=== PATIENT | female | born 1960 | race Caucasian/White ===

== ENCOUNTER 2018-03-30 12:28 | Outpatient (CLI) | payer OTHER, MEDICARE ==
--- NOTE | 2018-04-02 14:18 | CONSULTATION REPORT ---
REFERRING PHYSICIAN: Dr. Dania Walker CONSULTING PHYSICIAN: Antonio Calderon MD HISTORY OF PRESENT ILLNESS: Adraina Chowdary is a new patient. She has a history of rheumatoid arthritis involving hands and feet diagnosed on the [facility]. From that point of view, she is doing well. She is not having any joint pain or stiffness in the hands and wrists and she has had no deformities. She saw a track fitter in [place] who felt she did not have rheumatoid arthritis, so she has switched her care to pr. The main problem is pain in the back and the legs. She has had 3 prior lumbar surgeries and she is having a 4th surgery next week at [facility] with Dr. Sauceda. She is also a chronic pain patient and is having a hard time finding someone in pain management but hopefully, will be working with Dr. Arturo Wynne at [facility]. Otherwise, she has no joint swelling. She does have morning stiffness and she hurts all over. It hurts more in the bones and she points to the arms and thighs and lower legs. She recently had nerve conduction studies dated March 07, 2018, which showed chronic neuropathic changes consistent with old chronic L5 radiculopathies bilaterally and a right S1 radiculopathy. On January 31, she had an MRI of the lumbar spine showing postsurgical and spondylolytic change of the lumbar spine with moderate to severe bilateral neuroforaminal narrowing and mild relative central canal stenosis and progressed from a study dated July 13, 2012. She has a significant amount of lab data. Her last CRP was 1.93. She has had CRPs as high as 14 from a different lab, which by that reference lab was felt to be positive. Her last sedimentation rate was January 02 and it was 8. PAST MEDICAL HISTORY: 1. Mitral valve regurgitation. 2. Pneumonia. 3. Hypertension. 4. Chronic headaches. 5. Meralgia paresthetica. 6. Arachnoiditis. 7. Fibromyalgia. 8. Sleep apnea. 9. She is also HLA-B27 positive. PAST SURGICAL HISTORY: 1. Hysterectomy. 2. Three spinal surgeries. 3. Cervical spine surgery in 2008. 4. Arm surgery in 2003. 5. Cholecystectomy. PREVIOUS TREATMENTS: 1. Aspirin. 2. Motrin. 3. Naprosyn. 4. Voltaren. 5. Methotrexate. PRESENT MEDICATIONS: 1. Celebrex 100 mg twice a day. 2. Folic acid 1 mg daily. 3. Methotrexate 0.6 mL intramuscularly every week. Given in a 50 mg 2 mL vial. 4. Ropinirole 0.5 mg. 5. Metoprolol 50 mg 1 daily. 6. Duloxetine 60 mg 1 daily. 7. Omeprazole. 8. Zolpidem. 9. Estradiol. 10. Potassium chloride. 11. Lasix 40 mg daily. ALLERGIES: Patient has no known drug allergies. SOCIAL HISTORY: The patient is disabled. She is . She quit smoking 10 years ago. She does not drink. REVIEW OF SYSTEMS: Positive for a 10-pound weight gain, fatigue, and weakness, dry eyes, dry mouth , chest pain, irregular heartbeat, high blood pressure, heart murmurs, shortness of breath, difficulty breathing at night, swelling of the legs, wheezing, sun sensitivity, color changes in the hands and feet in the cold, headaches, dizziness, muscle spasms, hands sensitivity, difficulty sleeping, and a history of abnormal CT of the chest dated June 2017, requiring a follow up for lung nodules. Otherwise, the patient has had no nausea, vomiting, diarrhea, dark stools, or blood stools. No urinary symptoms. No swollen or tender lymph nodes. No history of anemia or blood transfusions. PHYSICAL EXAMINATION: VITAL SIGNS: Height: 5 feet 10 inches. Weight: 270 pounds. T: 97.3, R: 20, heart rate 80, BP: 150/84. HEENT: Sclerae are anicteric. Conjunctivae are pink. No stomatitis or glossitis. LUNGS: Clear bilaterally with no crackles or wheezing. HEART: Regular rate and rhythm. Normal S1 and S2. ABDOMEN: Soft and nontender. No hepatic or splenic enlargement. VASCULAR: She has trace vascular edema of the lower extremities. SKIN: Skin exam shows a nonspecific dermatitis of the upper extremities. She has no rheumatoid nodules of the upper or lower extremities. JOINTS: DIPs, PIPs, MCPs, and wrists are unremarkable with no synovitis and no deformities. Full range of motion. Elbows, shoulders, hips, knees, ankles, and feet are the same. No limitation of motion. No deformity. No effusions. She has no ankle MTP tenderness. IMPRESSION: 1. History of rheumatoid arthritis. Apparently doing well from the patient tells me. 2. Chronic low back pain and history of arachnoiditis. Unfortunately, it appears to require a new surgical intervention. 3. History of meralgia paraesthetica. 4. HLA-B27 positivity of unknown significance in this clinical situation. 5. Active problems continue to be sleep apnea and obesity. PLAN: 1. We will continue her present medications and I refilled her Folate, methotrexate, and Celebrex. 2. No need for labs today. 3. I will see her back in 3 months. At that time, I am going to want to recheck her serologies, including AVISE testing, sedimentation rate, CRP, CBC, CMP, hepatitis and QuantiFERON-TB Gold, as well as contemplating repeat x-rays of her hands and feet. Thank you very much. cc: Dr. Dania GUERRIER
== END 2018-03-30 14:18 ==
LOC: RHEU 12:28
PROVIDERS: ATTEND Internal Medicine
DX: M54.5 Low back pain (principal); Z87.39 Personal history of other diseases of the musculoskeletal system and connective tissue; Z86.61 Personal history of infections of the central nervous system; G57.11 Meralgia paresthetica, right lower limb; G47.30 Sleep apnea, unspecified; E66.9 Obesity, unspecified
CPT/HCPCS: 99213; 99214

== ENCOUNTER 2018-06-29 10:47 | Outpatient (CLI) | payer OTHER, MEDICARE ==
--- NOTE | 2018-07-02 12:12 | OP Clinic Progress Note ---
REASON FOR VISIT: Adriana Chowdary returns for follow up of rheumatoid arthritis, unspecified. She is doing okay from that point of view. She is not having significant swelling or pain in her hands, wrists, or feet. A major problem is her chronic low back pain and arachnoiditis. She has a history of 3 prior lumbar surgeries. She is no longer followed at [facility] ([facility] She has known chronic L5 radiculopathy bilaterally and right S1 radiculopathy. PAST MEDICAL HISTORY: 1. Mitral valve regurgitation. 2. Pneumonia. 3. Hypertension. 4. Chronic headaches. 5. Meralgia paraesthetica. 6. Arachnoiditis. 7. Fibromyalgia. 8. Sleep apnea. 9. HLA-B27 positive. PAST SURGICAL HISTORY: 1. Hysterectomy. 2. Three spinal surgeries. 3. Cervical spine surgery. 4. Cholecystectomy. PREVIOUS TREATMENTS TRIED: Methotrexate. PRESENT MEDICATIONS: 1. Celebrex 100 mg twice a day. 2. Folic acid 1 mg daily. 3. Methotrexate 0.6 mL subcutaneous every week given in a 50 mg 2 mL vial. 4. Ropinirole 0.5 mg. 5. Metoprolol 50 mg daily. 6. Duloxetine 60 mg daily. 7. Omeprazole 20 mg daily. 8. Zolpidem. 9. Estradiol. 10. Potassium chloride. 11. Lasix 40 mg daily. ALLERGIES: She has no known drug allergies. SOCIAL HISTORY: She is disabled. Former smoker. REVIEW OF SYSTEMS: No fevers, chills, sweats, chest pain, shortness of breath, cough, wheezing, nausea, vomiting, or diarrhea. She did fall down a hill get off a zero-turn mower with no significant injury. PHYSICAL EXAMINATION: VITAL SIGNS: Weight: 267 pounds. T: 98.5, R: 20, BP: 150/85, P: 65. HEENT: Sclerae are anicteric. Conjunctivae are pink. No stomatitis or glossitis. LUNGS: Clear bilaterally with no crackles or wheezing. HEART: Regular rate and rhythm. ABDOMEN: Soft and nontender. VASCULAR: No edema or cyanosis. PERIPHERAL JOINTS: No significant synovitis or tenderness at the DIPs, PIPs, MCPs, wrists, elbows, shoulders, hips, knees, ankles, and feet. IMPRESSION: Rheumatoid arthritis. PLAN: 1. We will check her rheumatoid factor today, QuantiFERON-TB Gold, hepatitis C serology, CBC, CMP, sedimentation rate, and CRP. 2. I will see her back in 3 months. Thank you very much. cc: Dr. Dania GUERRIER
== END 2018-06-29 10:50 ==
LOC: RHEU 10:47
PROVIDERS: ATTEND Internal Medicine
DX: M06.9 Rheumatoid arthritis, unspecified (principal)
CPT/HCPCS: 99213; 99214

== ENCOUNTER 2018-07-31 11:17 | Outpatient (CLI) | payer OTHER, MEDICARE ==
[~2018-07-31 11:17] MED LIST: 0.9 % SODIUM CHLORIDE PF 10 ML VIAL IJ ONE; LIDOCAINE HCL 2% PF 100MG/5ML VIAL IJ ONE; SALINE FLUSH 10 ML DISP.SYRIN IVF ONE; TRIAMCINOLONE ACETONID 40MG/ML VIAL ONE
--- NOTE | 2018-08-07 10:12 | HISTORY AND PHYSICAL REPORT ---
REFERRING PHYSICIAN: Dr. Antonio Calderon Dear Curtis: HISTORY OF PRESENT ILLNESS: I had the opportunity of seeing Adriana Chowdary today as an outpatient at [facility]. As you are aware, Ms. Chowdary is a very nice 57-year-old white female with a history of low back pain, bilateral lower extremity pain, and 4 previous lumbar surgeries. She has a fusion, decompression, and instrumentation from L3 to L5 in the lumbar spine and has lived both in the [facility] area and the [facility]. I have reviewed her records from the pain clinic out there. She has had over time multiple injection therapy and medication management. She is currently off of oral opiates and at one time was taking oxycodone and another time she was taking Nucynta. She had been on gabapentin but had some ataxia of her gait. She says the leg pain is worse than the back pain but any time she is on her feet, the symptoms are worse. She does walk. She is able to walk her dogs and take part in recreational activities but she is limited. She has a history of rheumatoid arthritis/autoimmune disease treated by Dr. Calderon. She is currently on methotrexate. She tells me that she had a nerve conduction velocity study done at [facility] and we have asked for the results of the study. I reviewed her lumbar films and there is a decompression which looks in place and intact and no recurrent stenosis above or below the L3 through L5 fusion. She had some spondylolytic changes. She had a chest CT and I do not appreciate any evidence of stenosis in the thoracic spine as well. PAST MEDICAL HISTORY: 1. History of rheumatoid arthritis. 2. Fibromyalgia. 3. Vision problems. 4. Nose or sinus problems. 5. Heart murmur. 6. Hypertension. 7. Bruising easily. 8. COPD. 9. Loss of bowel control. 10. Frequent headaches. 11. Chronic pain. 12. Failed back surgery. 13. She is HLA-B27 positive. 14. Arachnoiditis. PAST SURGICAL HISTORY: 1. Hysterectomy. 2. Cholecystectomy. 3. Arm surgery in 2003. 4. ACDF in 2008. 5. Lumbar surgery x3. 6. Breast surgery in 1984. DAILY MEDICATIONS: 1. Celebrex 100 mg twice a day. 2. Folic acid 1 mg daily. 3. Methotrexate 0.6 mL weekly. 4. Ropinirole 0.5 mg at bedtime. 5. Metoprolol 50 mg daily. 6. Duloxetine 60 mg daily. 7. Omeprazole 20 mg daily. 8. Ambien 10 mg at bedtime. 9. Estradiol daily. 10. Potassium chloride 10 mEq daily p.r.n. with Lasix. 11. Lasix 40 mg daily p.r.n. ALLERGIES: She has no known drug allergies. SOCIAL HISTORY: She is a previous half-a-pack per day smoker and quit 11 years ago. She previously drank alcohol socially. She quit 20 years ago. Denies recreational drugs. She has been for 18 years. She has 2 children and lives at home with her . She completed the 12th grade. She is not currently employed. Previous occupation was a [employer] dispatcher. She is disabled due to multiple medical issues. FAMILY HISTORY: She has a family history of a father with heart disease. Mother with atrial fibrillation. Siblings with cancer, brain aneurysm, chronic pain related to migraines. REVIEW OF SYSTEMS: In the last month or so, she reports a weight gain, night sweats, swelling in hands and feet, bleeding, bruising, shortness of breath, cough or cold, loss of bowel control, constipation, rashes or sores, headaches. Pain is worsened with lying down, standing, bending, sitting, walking, twisting, getting up from a chair, cough, sneeze, changes in weather, cold, driving, or in any position for too long. Pain is improved with lying down, ice, heat, and a massage. PHYSICAL EXAMINATION: General: This is a mild to moderately obese white female in no apparent distress. Vital Signs: BP: 111/62, P: 70, R: 20, oxygen saturation is 98% on room air. HEENT: Pupils are equal, round, and reactive to light and accommodation. Extraocular movements intact. No facial droop. Neck: There is full range of motion of the cervical spine. No evidence of adenopathy. Thyroid is nontender, not enlarged. Carotids are without bruits. Chest: Clear to auscultation bilaterally. Normal chest excursion. Heart: Regular rate and rhythm without murmur. Abdomen: Benign. Normoactive bowel sounds. Motor/sensory: Intact in the upper and lower extremities. Moves all extremities freely. Extremities: There is positive straight leg raise bilaterally. Flexion and extension of the lower extremities are 5/5 and equal. Dorsiflexion of the right foot is 4/5 and the left foot is 5/5. ASSESSMENT: 1. History of lumbar radiculitis with intractable back pain. 2. Four previous lumbar surgeries, now with L3 through L5 intact decompression, fusion, and instrumentation, including an anterior lumbar interbody fusion (ALIF). PLAN: At this point, I have ordered a palliative caudal epidural steroid injection. She is not sure that she has ever had one of these performed in the [place] area. I have given her information on a neurostimulator. I am going to follow her up next month and obtain a P3 study and work towards a trial of neural modulation. I spent 30 minutes today talking with Ms. Chowdary about her problem and underlying treatment options, and I told her that in my experience, a stimulator would be the best possible treatment for her symptomatology. She seems receptive. She tells me that her mother had a stimulator that did not work well, so she is cautious but willing to proceed with a trial. We will follow her up next month in my office. For today, we will place a palliative caudal epidural steroid injection. Dr. Calderon, thank you very much for allowing me to take part in the care of this nice lady. I appreciate the opportunity to take part in the care of your patients. cc: Dr. Antonio GUERRIER
--- NOTE | 2018-08-07 10:23 | CAUDAL ESI WITH FLUORO ---
PROCEDURE: Caudal epidural steroid injection. DESCRIPTION OF PROCEDURE: The risks and benefits of a caudal epidural steroid injection were explained to the patient, including the risk of infection, bleeding, nerve injury, worsened pain, failure to relieve pain, spinal headache or steroid exposure risks, including hyperglycemia, hypertension, osteoporosis, and increased infectious risks. The patient understood the risks and agreed to proceed. The patient was placed on the fluoroscopy table in the prone position with a pillow underneath the abdomen. The caudal area was cleaned. AP and lateral fluoroscopic views were obtained, identifying the sacrum and sacral hiatus. The caudal epidural space was accessed from a percutaneous approach at the sacral hiatus with a Tuohy needle. On entering the caudal epidural space, it was verified that there was no aspiration of blood or CSF or urine. Furthermore, the needle tip location was verified with lateral and AP fluoroscopic views. Omnipaque 240 myelogram dye was injected through the needle. The distribution of the dye was noted to be within the desired distribution within the caudal epidural space. At this point, the medication was injected into the caudal epidural space. The stylette was replaced in the needle and the needle was subsequently removed from the back. The patient tolerated the procedure without adverse sequelae. The sacral area was cleaned and a bandage was applied over the injection site. The patient was then monitored for 20 minutes following the procedure, during which time the vital signs remained stable and no adverse sequelae were noted or reported. The patient was discharged home with a wheelchair driver and was in good condition on discharge. ASSESSMENT: 1. Lumbar radiculitis. 2. Intractable back and lower extremity pain failing previous decompressive surgeries. 3. Rheumatoid arthritis. PLAN: Caudal epidural steroid injection today. FOLLOW UP: Patient is to call for complications or worsened pain. cc: Dr. Antonio GUERRIER
== END 2018-07-31 11:19 ==
LOC: OUT 11:17
PROVIDERS: ATTEND Anesthesiology Pain Medicine
DX: M54.16 Radiculopathy, lumbar region (principal); M54.5 Low back pain; M06.9 Rheumatoid arthritis, unspecified
CPT/HCPCS: 62323; 99204; G0463; J2001; J3301; Q9966